=== PATIENT | male | born 1945 | race Caucasian/White ===

== ENCOUNTER → 2019-02-13 | Outpatient (CLI) | payer OTHER, MEDICARE ==
[~2019-02-13] MED LIST: 00186-0370-20 IH; ASPIRIN E.C. 8181 MG PO; DESYREL 100MG100 MG PO; GLUCOPHAGE500 MG/TAB PO; LIPITOR 40MG TA40 MG PO; NORVASC 10MG10 MG PO; PROAIR HFA0.09 MG/AC IH; SPIRIVA RE2.5 MCG/Ac IH; XALATAN EYE DROPS OU; ZOLOFT 100MG100 MG PO
== END ==
LOC: COL.RAD 13:32
DX: C34.2 Malignant neoplasm of middle lobe, bronchus or lung (principal); I82.611 Acute embolism and thrombosis of superficial veins of right upper extremity; I82.A11 Acute embolism and thrombosis of right axillary vein; Z95.828 Presence of other vascular implants and grafts

== ENCOUNTER 2019-02-28 09:00 | Outpatient (RCR) | payer OTHER, MEDICARE ==
[2019-01-09 09:31] VITALS: BP 165/80; PULSE 71; TEMP 97.7
[2019-01-16 13:10] VITALS: BP 134/74; PULSE 72; TEMP 97.6
[2019-01-16 13:37] LABS: HEMATOCRIT 38.5 % (42.0-52.0); HEMOGLOBIN 12.9 g/dl (13.5-18.0); MEAN CELL VOLUME 96 fl (80.0-100.0); MEAN CORPUSCULAR HEMOGLOBIN 32 pg (27.0-31.0); MEAN CORPUSCULAR HGB CONC 34 g/dl (33.0-37.0); MEAN PLATELET VOLUME 10.7 fl (7.4-10.4); PLATELET COUNT 179 K/mm3 (130-400); RED BLOOD COUNT 4.01 M/mm3 (4.20-5.60); REDCELL DISTRIBUTION WIDTH-CV 15.3 % (11.5-14.5)
[2019-01-16 13:58] LABS: ALBUMIN 3.8 gm/dL (3.5-5.0); BILIRUBIN,TOTAL 0.5 mg/dL (0.0-1.0); CALCIUM 8.9 mg/dL (8.4-10.2); CREATININE, serum 0.68 (0.66-1.25); TOTAL PROTEIN 6.6 gm/dL (6.4-8.2)
[2019-01-16 14:22] LABS: LYMPHOCYTE 15 % (20.0-51.0); NEUTROPHILS 78 % (42.0-75.2); PLATELET ESTIMATE NORMAL (NORMAL)
--- NOTE | 2019-01-23 14:20 | NUR ---
PICC intact right upper arm. With sterile technique right upper arm PICC dressing change done with insertion site cleansed with ChloraPrep 1, sedated impregnated disc applied, skin prep, StatLock, and Tegaderm applied. no signs or symptoms of IV complications noted. no concerns voiced. Patient to return next week for cares. Patient voiced understanding of instructions.
[2019-01-23 14:33] VITALS: BP 103/62; PULSE 87; TEMP 98.1
[2019-01-23 14:43] LABS: HEMOGLOBIN 12.6 g/dl (13.5-18.0); MEAN CELL VOLUME 98 fl (80.0-100.0); MEAN CORPUSCULAR HEMOGLOBIN 32 pg (27.0-31.0); MEAN CORPUSCULAR HGB CONC 33 g/dl (33.0-37.0); PLATELET COUNT 175 K/mm3 (130-400); RED BLOOD COUNT 3.89 M/mm3 (4.20-5.60); REDCELL DISTRIBUTION WIDTH-CV 15.4 % (11.5-14.5)
[2019-01-23 15:32] LABS: ANISOCYTOSIS 1+; BAND 5 % (0-10); LYMPHOCYTE 9 % (20.0-51.0); NEUTROPHILS 83 % (42.0-75.2); PLATELET ESTIMATE NORMAL (NORMAL)
[2019-01-30 14:56] VITALS: BP 102/52; PULSE 92; TEMP 98.4
[2019-01-30 14:58] LABS: HEMOGLOBIN 12.2 g/dl (13.5-18.0); MEAN CELL VOLUME 97 fl (80.0-100.0); MEAN CORPUSCULAR HEMOGLOBIN 32 pg (27.0-31.0); MEAN CORPUSCULAR HGB CONC 33 g/dl (33.0-37.0); MEAN PLATELET VOLUME 10.3 fl (7.4-10.4); PLATELET COUNT 214 K/mm3 (130-400); RED BLOOD COUNT 3.77 M/mm3 (4.20-5.60); REDCELL DISTRIBUTION WIDTH-CV 15.4 % (11.5-14.5)
[2019-01-30 15:00] LABS: HEMATOCRIT 36.7 % (42.0-52.0)
[2019-01-30 15:11] LABS: ALBUMIN 3.5 gm/dL (3.5-5.0); BILIRUBIN,TOTAL 0.5 mg/dL (0.0-1.0); CALCIUM 8.8 mg/dL (8.4-10.2); CREATININE, serum 0.71 (0.66-1.25); TOTAL PROTEIN 6.1 gm/dL (6.4-8.2)
[2019-01-30 15:33] LABS: ANISOCYTOSIS 1+; BAND 7 % (0-10); LYMPHOCYTE 24 % (20.0-51.0); METAMYELOCYTE 2 % (0-0); NEUTROPHILS 66 % (42.0-75.2); PLATELET ESTIMATE NORMAL (NORMAL)
--- NOTE | 2019-02-06 14:00 | NUR ---
PICC intact right upper arm with sterile dressing change done with insertion site cleansed with chloraprep x 1, chlorhexidine imgregnated disk, stat lock, and tegaderm applied. no signs or symptoms of IV complications noted. no concerns voiced. to return next week for cares. voiced understanding of instructions.
[2019-02-06 14:28] VITALS: BP 91/60; PULSE 95; TEMP 98
[2019-02-06 14:29] LABS: HEMATOCRIT 38.2 % (42.0-52.0); HEMOGLOBIN 12.8 g/dl (13.5-18.0); MEAN CELL VOLUME 97 fl (80.0-100.0); MEAN CORPUSCULAR HEMOGLOBIN 33 pg (27.0-31.0); MEAN CORPUSCULAR HGB CONC 34 g/dl (33.0-37.0); MEAN PLATELET VOLUME 10.1 fl (7.4-10.4); PLATELET COUNT 231 K/mm3 (130-400); RED BLOOD COUNT 3.93 M/mm3 (4.20-5.60); REDCELL DISTRIBUTION WIDTH-CV 15.6 % (11.5-14.5)
[2019-02-06 15:00] LABS: ANISOCYTOSIS 2+; BAND 2 % (0-10); EOSINOPHIL 1 % (0-4); LYMPHOCYTE 13 % (20.0-51.0); METAMYELOCYTE 3 % (0-0); MYELOCYTE 1 % (0-0); NEUTROPHILS 78 % (42.0-75.2); PLATELET ESTIMATE NORMAL (NORMAL)
[2019-02-06 15:01] LABS: MICROCYTOSIS 1+
[2019-02-13 15:22] VITALS: BP 132/72; PULSE 77; TEMP 97.7
--- NOTE | 2019-02-13 15:30 | NUR ---
PICC intact right upper arm with sterile dressing change done with insertion site cleansed with chloraprep x 1, chlorhexidine impregnated disk applied, skin prep, stat lock, and tegaderm applied. no signs or symptoms of IV complications noted. no concerns voiced. to return next week for cares. voiced understanding of instructions.
[2019-02-13 15:31] LABS: HEMOGLOBIN 11.5 g/dl (13.5-18.0); MEAN CELL VOLUME 99 fl (80.0-100.0); MEAN CORPUSCULAR HEMOGLOBIN 33 pg (27.0-31.0); MEAN CORPUSCULAR HGB CONC 33 g/dl (33.0-37.0); MEAN PLATELET VOLUME 10.8 fl (7.4-10.4); PLATELET COUNT 163 K/mm3 (130-400); RED BLOOD COUNT 3.53 M/mm3 (4.20-5.60); REDCELL DISTRIBUTION WIDTH-CV 15.8 % (11.5-14.5)
[2019-02-13 15:33] LABS: HEMATOCRIT 35.1 % (42.0-52.0)
[2019-02-13 16:24] LABS: BAND 2 % (0-10); EOSINOPHIL 1 % (0-4); LYMPHOCYTE 16 % (20.0-51.0); NEUTROPHILS 78 % (42.0-75.2)
[2019-02-13 16:27] LABS: PLATELET ESTIMATE NORMAL (NORMAL)
[2019-02-20 13:53] LABS: HEMOGLOBIN 11.7 g/dl (13.5-18.0); MEAN CELL VOLUME 98 fl (80.0-100.0); MEAN CORPUSCULAR HEMOGLOBIN 34 pg (27.0-31.0); MEAN CORPUSCULAR HGB CONC 34 g/dl (33.0-37.0); MEAN PLATELET VOLUME 10.4 fl (7.4-10.4); PLATELET COUNT 130 K/mm3 (130-400); RED BLOOD COUNT 3.48 M/mm3 (4.20-5.60); REDCELL DISTRIBUTION WIDTH-CV 15.5 % (11.5-14.5)
[2019-02-20 14:14] LABS: ALBUMIN 3.6 gm/dL (3.5-5.0); BILIRUBIN,TOTAL 0.7 mg/dL (0.0-1.0); CALCIUM 8.9 mg/dL (8.4-10.2); CREATININE, serum 0.53 (0.66-1.25); POTASSIUM 4.4 mmol/L (3.4-5.0); TOTAL PROTEIN 6.4 gm/dL (6.4-8.2)
[2019-02-20 14:25] LABS: BAND 6 % (0-10); LYMPHOCYTE 13 % (20.0-51.0); NEUTROPHILS 76 % (42.0-75.2); PLATELET ESTIMATE NORMAL (NORMAL)
[2019-02-20 14:47] VITALS: BP 128/77; PULSE 83; TEMP 97.3
--- NOTE | 2019-02-27 14:15 | NUR ---
Here for cares. with sterile technique right upper arm draped and prepped with chloraprep x 1, chlorhexidine impregnated disk applied, skin prep, stat lock, and tegaderm applied. no signs or symptoms of IV complications noted. no concerns voiced. to return next week for cares. voiced understanding of instructions.
[2019-02-27 14:16] VITALS: BP 93/61; PULSE 93; TEMP 99.3
[2019-02-27 14:41] LABS: HEMOGLOBIN 11.4 g/dl (13.5-18.0); MEAN CELL VOLUME 99 fl (80.0-100.0); MEAN CORPUSCULAR HEMOGLOBIN 33 pg (27.0-31.0); MEAN CORPUSCULAR HGB CONC 34 g/dl (33.0-37.0); MEAN PLATELET VOLUME 10.3 fl (7.4-10.4); PLATELET COUNT 151 K/mm3 (130-400); RED BLOOD COUNT 3.41 M/mm3 (4.20-5.60); REDCELL DISTRIBUTION WIDTH-CV 15.8 % (11.5-14.5)
[2019-02-27 14:50] LABS: HEMATOCRIT 33.6 % (42.0-52.0)
[2019-02-27 14:58] LABS: BAND 6 % (0-10); EOSINOPHIL 1 % (0-4); LYMPHOCYTE 13 % (20.0-51.0); NEUTROPHILS 77 % (42.0-75.2); PLATELET ESTIMATE NORMAL (NORMAL)
[~2019-02-28] VITALS: Ht 170.2 cm; Wt 53.0 kg
[2019-02-28 08:56] VITALS: BP 126/79; PULSE 87; TEMP 97.9
--- NOTE | 2019-02-28 09:15 | NUR ---
Pt elton PICC removal well. Pt observed for 15 min after PICC removal. Pt discharged per ambulation with .
== END 2019-02-28 10:14 | disposition home or self-care (01) ==
LOC: EUO 09:00
PROVIDERS: Internal Medicine; Internal Medicine Medical Oncology; Radiology Radiation Oncology
DX: Z45.2 Encounter for adjustment and management of vascular access device (principal); C34.2 Malignant neoplasm of middle lobe, bronchus or lung; I51.7 Cardiomegaly; I10 Essential (primary) hypertension
CPT/HCPCS: C1751

== ENCOUNTER → 2019-04-16 | Outpatient (CLI) | payer OTHER, MEDICARE ==
[~2019-04-16] MED LIST changes: +PREDNISONE10 MG PO; +ZOVIRAX800 MG PO
== END ==
LOC: COL.RAD 09:10
DX: C34.2 Malignant neoplasm of middle lobe, bronchus or lung (principal)
CPT/HCPCS: A9503

== ENCOUNTER 2019-04-18 10:01 | Emergency (ER) | payer OTHER, MEDICARE ==
[~2019-04-18] VITALS: Ht 170.2 cm; Wt 51.8 kg
[~2019-04-18 10:01] MED LIST changes: -PREDNISONE10 MG PO; -ZOVIRAX800 MG PO
[2019-04-18 10:32] LABS: EOS # 0.1 (0.0-0.7); EOS % 1.5 % (0-4.0); GRAN # 3.4 (1.4-6.5); GRAN % 74.1 % (42.2-75.2); HEMOGLOBIN 11.6 g/dl (13.5-18.0); LYMPH # 0.6 (1.2-3.4); LYMPH % 12.1 % (20.0-51.0); MEAN CELL VOLUME 103 fl (80.0-100.0); MEAN CORPUSCULAR HEMOGLOBIN 34 pg (27.0-31.0); MEAN CORPUSCULAR HGB CONC 33 g/dl (33.0-37.0); MONO # 0.6 (0.1-0.6); MONO % 12.1 % (1.7-9.3); PLATELET COUNT 235 K/mm3 (130-400); PROTHROMBIN TIME 11.3 SECONDS (9.7-12.8); RED BLOOD COUNT 3.37 M/mm3 (4.20-5.60); REDCELL DISTRIBUTION WIDTH-CV 14.9 % (11.5-14.5)
[2019-04-18 10:33] LABS: HEMATOCRIT 34.7 % (42.0-52.0)
[2019-04-18 10:43] LABS: ALANINE AMINOTRANSFERASE 18 U/L (21-72); ALBUMIN 3.8 gm/dL (3.5-5.0); ALKALINE PHOSPHATASE 53 U/L (50-136); ANION GAP 8 mmol/L (7-16); AST,SGOT 25 U/L (15-37); BILIRUBIN,TOTAL 0.4 mg/dL (0.0-1.0); BLOOD UREA NITROGEN 19 mg/dL (9-20); CARBON DIOXIDE 27 mmol/L (22-30); CHLORIDE 102 mmol/L (98-107); CREATININE, serum 0.71 (0.66-1.25); GLUCOSE 81 mg/dL (74-106); POTASSIUM 3.9 mmol/L (3.4-5.0); SODIUM 137 mmol/L (137-145); TOTAL PROTEIN 6.4 gm/dL (6.4-8.2)
[2019-04-18 10:48] LABS: C-REACTIVE PROTEIN < 0.5 mg/dL (0.0-0.9)
[2019-04-18] MEDS ORDERED: PREDNISONE10 MG PO (10:55)
[2019-04-18] MEDS ORDERED: ZOVIRAX800 MG PO (10:55)
[2019-04-18 11:20] VITALS: BP 159/86; PULSE 82; TEMP 98.6
== END 2019-04-18 11:24 | disposition home or self-care (01) ==
LOC: COL.ER 10:01
PROVIDERS: Family Medicine
DX: G51.0 Bell's palsy (principal); Z85.118 Personal history of other malignant neoplasm of bronchus and lung
CPT/HCPCS: J7512